=== PATIENT | male | born 1995 | race Caucasian/White ===

== ENCOUNTER 2022-04-11 14:40 | Emergency (ER) | payer SELFPAY ==
[~2022-04-11] VITALS: Ht 172 cm; Wt 54.0 kg
[2022-04-11] MEDS ORDERED: cefTRIAXone 1,000 MG VIAL IM STA (15:09)
[2022-04-11] MEDS ORDERED: AZITHROMYCIN 250 MG TAB (ZITHROMAX) PO STA (15:09)
[2022-04-11 15:12] VITALS: BP 132/84
[2022-04-11] MEDS ORDERED: LIDOCAINE 1% INJ 20 ML VIAL INJ ONE (15:15)
[2022-04-11 15:16] LABS: BILIRUBIN,URINE NEGATIVE (NEGATIVE); CLARITY,URINE TURBID; COLOR,URINE YELLOW; GLUCOSE, URINE (UA) NEGATIVE (NEGATIVE); KETONES,URINE NEGATIVE (NEGATIVE); LEUKOCYTE ESTERASE ,URINE 1+ (NEGATIVE); NITRITE,URINE NEGATIVE (NEGATIVE); PROTEIN,URINE 1+ (NEGATIVE)
--- NOTE | 2022-04-11 15:17 | ED GU-Male ---
General Chief Complaint: - Reproductive Stated Complaint: URINARY PAIN Source: patient History of Present Illness Date Seen by Provider: Apr 11, 2022 Time Seen by Provider: 14:55 Initial Comments 27-year-old male presenting with complaints of burning and pain with urination. He states that about 5 days prior he had unprotected sex with a girl from [place]. Since then he has been having burning, pain, discharge. He has intermittently had some nausea but no vomiting. He denies any fever or chills. He states he has had similar symptoms in the past with a sexually transmitted infection. Timing/Duration: getting worse (Over the last 5 days) Severity/Quality: moderate Location: urethral Radiation: urethral Activities at Onset: sexual activity Prior Genitourinary Problems: similar symptoms Sexual [place] History: less than 2 months ago, multiple partners Modifying Factors: Worsens With Urinating Associated Symptoms: No abdominal pain, No diaphoresis; dysuria; No fever/chills, No loss of bladder control, No lower back pain, No lumps, No mass, No nausea/vomiting, No nocturia, No polyuria, No swelling, No syncope, No urinary frequency Allergies and Home Medications Allergies Coded Allergies: No Known Drug Allergies (Unverified , 04/11/22) Patient Home Medication List Home Medication List Reviewed: Yes Review of Systems Review of Systems Constitutional: No chills, No fever EENTM: no symptoms reported Respiratory: no symptoms reported Cardiovascular: no symptoms reported Gastrointestinal: no symptoms reported Genitourinary: no symptoms reported Musculoskeletal: no symptoms reported Skin: No rash Psychiatric/Neurological: No Symptoms Reported Endocrine: No Symptoms Reported Past Edbdvna-Siozoz-Qzaitt Hx Patient Social History Use of E-Cig and/or Vaping dev: Yes Substance use?: Yes Substance type: Methamphetamine Substance frequency: Daily Alcohol Use?: Yes Alcohol Frequency: Daily Past Medical History Surgeries: No Physical Exam Vital Signs Vital Signs - First Documented 04/11/22 15:12 Temp 36.2 Pulse 87 Resp 16 B/P (MAP) 132/84 (100) Pulse Ox 98 Capillary Refill : Height, Weight, BMI Height: '" Weight: lbs. oz. kg; BMI Method: General Appearance: WD/WN, thin, other (Anxious. Multiple tattoos) HEENT: PERRL/EOMI, pharynx normal Neck: non-tender, full range of motion, supple, normal inspection Cardiovascular: normal peripheral pulses, regular rate, rhythm Respiratory: chest non-tender, lungs clear, normal breath sounds Extremities: normal range of motion, non-tender, normal capillary refill Neurologic/Psychiatric: alert, oriented x 3 Skin: normal color, warm/dry; No rash Progress/Results/Core Measures Suspected Sepsis SIRS Temperature: Pulse: Respiratory Rate: Blood Pressure / Mean: Results/Orders Lab Results Laboratory Tests Test 04/11/22 15:00 Range/Units Urine Color YELLOW Urine Clarity TURBID Urine pH 7.0 5-9 Urine Specific [place] 1.025 H 1.016-1.022 Urine Protein 1+ H NEGATIVE Urine Glucose (UA) NEGATIVE NEGATIVE Urine Ketones NEGATIVE NEGATIVE Urine Nitrite NEGATIVE NEGATIVE Urine Bilirubin NEGATIVE NEGATIVE Urine Urobilinogen 1.0 < = 1.0 MG/DL Urine Leukocyte Esterase 1+ H NEGATIVE Urine RBC (Auto) TRACE-I H NEGATIVE Urine RBC 0-2 /HPF Urine WBC >100 H /HPF Urine Squamous Epithelial Cells RARE /HPF Urine Crystals NONE /LPF Urine Bacteria NEGATIVE /HPF Urine Casts NONE /LPF Urine Mucus NEGATIVE /LPF Urine Culture Indicated YES My Orders Orders - FLORA HEALY MD Ua Culture If Indicated (04/11/22 14:47) [place]is [place] Dna Urine Test (04/11/22 14:47) Chlamydia Trachomatis Urine (04/11/22 14:47) Ceftriaxone (Rocephin) (04/11/22 15:09) Azithromycin Tablet (Zithromax Tablet) (04/11/22 15:09) Lidocaine 1% Inj 20 Ml (Xylocaine 1% Inj (04/11/22 15:15) Lidocaine 1% Inj 50 Ml (Xylocaine 1% Inj (04/11/22 15:21) Urine Culture (04/11/22 15:00) Medications Given in ED Current Medications Medications Dose Ordered Sig/Ximena Route Start Time Stop Time Status Last Admin Dose Admin Lidocaine HCl 2.1 ml ONCE ONCE INJ 04/11/22 15:15 04/11/22 15:16 DC 04/11/22 15:27 2.1 ML Vital Signs/I&O 04/11/22 15:12 Temp 36.2 Pulse 87 Resp 16 B/P (MAP) 132/84 (100) Pulse Ox 98 Capillary Refill : Progress Note : Progress Note Based on his symptoms we will treat with Rocephin IM and Zithromax p.o. Counseled to purchase for safer sex practices. If he has continued symptoms check back through the clinic for additional testing not available in ED Departure Impression Primary Impression: Urethritis, nonspecific Additional Impressions: Unprotected sexual intercourse At risk for sexually transmitted disease due to unprotected sex Disposition: HOME, SELF-CARE Condition: Stable Departure-Patient Inst. Decision time for Depature: 15:15 Referrals: NO,LOCAL PHYSICIAN (PCP) Primary Care Physician [facility] Call [phone] to get established with primary care for continued concerns Patient Instructions: Sexually Transmitted Diseases ED, STD Prevention, Urethritis (DC) Add. Discharge Instructions: Drink plenty of water and stay well hydrated to flush out your urine. The antibiotics you were given today will treat for Gonorrhea and Chlamydia. If you have continued symptoms or more concerns establish care with primary clinic and follow up All discharge instructions reviewed with patient and/or family. Voiced understanding. FLORA HEALY MD Apr 11, 2022 15:17
[2022-04-11] MEDS ORDERED: LIDOCAINE 1% INJ 50 ML (XYLOCAINE) VIAL ONE (15:21)
[2022-04-11 15:26] LABS: BACTERIA,URINE NEGATIVE /HPF; RBC,URINE 0-2 /HPF; SQUAMOUS EPITHELIAL CELL,UR RARE /HPF; WBC,URINE >100 /HPF
== END 2022-04-11 15:35 | disposition home or self-care (01) ==
LOC: ER FS 14:46
DX: N34.2 Other urethritis (principal); F17.290 Nicotine dependence, other tobacco product, uncomplicated; Z20.2 Contact with and (suspected) exposure to infections with a predominantly sexual mode of transmission
CPT/HCPCS: 36415; 81000; 87088; 87491; 87591; 99284